=== PATIENT | female | born 1950 | race Caucasian/White ===

== ENCOUNTER 2022-05-09 21:53 | Emergency (ER) | payer OTHER ==
--- OUTSIDE RECORDS SUMMARY | 2022-05-09 21:56 | XMS REPORT | Clinical Summary ---
:1950 Author Organization [facility] Address [address] [place] [address] Care Team Providers Name Role Phone Antonio Hutchins MD Primary Care Provider Evangelist Espinoza MD Unavailable Evangelist Espinoza MD Unavailable Antonio Hutchins MD Unavailable Allergies No known active allergies Medications Medication Sig Dispensed Refills Start Date End Date Status amLODIPine (NORVASC) 5 Take 5 mg by 0 Active mg tablet mouth daily. pravastatin (PRAVACHOL) Take 20 mg by 0 Active 20 mg tablet mouth at bedtime. metoprolol succinate Take 50 mg by 0 Active (TOPROL XL) 50 mg 24 hr mouth daily. tablet Active Problems Problem Noted Date Multinodular goiter 09/01/2015 Social History Tobacco Use Types Packs/Day Years Used Date Smoking Tobacco: Never Assessed Sex Assigned at Date Recorded Not on file Last Filed Vital Signs Not on file Plan of Treatment Health Maintenance Due Date Last Done Comments COVID-19 Vaccination (#1) 02/08/1951 Results Not on fileafter 05/09/2021 Insurance Payer Benefit Plan Subscriber ID Effective Phone Address Typ e / Group Dates MEDICARE MEDICARE [id number] 2015-Pres [phone] NOVITAS Medic are PART A AND B ent [id number] [employer] [place] [address] AETNA AETNA HMO [id number] 2000-Pres [address] HMO MANAGED CARE ent [id number] JAQUELINE FERGUSON [id number] 2017-Pres [address] Govern mental ent [id number] [place] [address] Carmelina Angel Personal/Family Self 1950 [address]) [place] [id number] Carmelina Angel Personal/Family Self 1950 [address] [place] [id number] 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
[2022-05-09 23:24] LABS: Absolute Lymphocytes (CBC) 1.5 K/uL (0.7-4.9); Hematocrit 38.3 % (36.0-45.0); Lymphocytes % 22.8 % (15.3-44.8); MCV 89.9 fL (80-100); MPV 8.5 fL (7.6-11.3); RBC Red Blood Cell Count 4.26 M/uL (3.86-4.86)
[2022-05-09 23:32] LABS: Protime INR 0.99
[2022-05-09 23:42] LABS: Albumin 4.3 g/dL (3.4-5.0); Potassium 3.5 mmol/L (3.5-5.1)
[2022-05-09 23:47] LABS: SARS-CoV-2 Antigen Rapid Res Negative (Negative)
--- NOTE | 2022-05-10 01:46 | ER ---
Nurse's Notes [facility] Name: Carmelina Gilbert Age: 71 yrs Sex: Female : 1950 Arrival Date: 05/09/2022 Time: 21:56 Bed 3 Private MD: Diagnosis: Left sided colitis with rectal bleeding Presentation: 05/09 22:05 Chief complaint: Patient states: "I have been bloody stools since Friday, but I am tw5 really nervous.". Ebola Screen: Patient negative for fever greater than or equal to 101.5 degrees Fahrenheit, and additional compatible Ebola Virus Disease symptoms Patient denies exposure to infectious person. Patient denies travel to an Ebola-affected area in the 21 days before illness onset. Initial Sepsis Screen: Does the patient meet any 2 criteria? No. Patient's initial sepsis screen is negative. Does the patient have a suspected source of infection? No. Patient's initial sepsis screen is negative. Risk Assessment: Do you want to hurt yourself or someone else? Patient reports no desire to harm self or others. Onset of symptoms was May 07, 2021. 22:05 Method Of Arrival: Ambulatory tw5 22:05 Acuity: RACHELLE 3 tw5 22:08 Coronavirus screen: Vaccine status: Patient reports receiving the 2nd dose of the covid tw5 vaccine. Munir. Triage Assessment: 22:05 General: Appears in no apparent distress. Behavior is appropriate for age, anxious. tw5 Pain: Pain currently is 3 out of 10 on a pain scale. Historical: - Allergies: 22:09 No Known Allergies; tw5 - Home Meds: 22:09 metoprolol tartrate 25 mg Oral tab 1 tab once daily [Active]; Norvasc 2.5 mg Oral tab 1 tw5 tab once daily [Active]; prastatin [Active]; - PMHx: 22:09 polio; tw5 - PSHx: 22:09 Cholecystectomy; back surgery; tw5 - Immunization history:: Flu vaccine is not up to date. - Social history:: Smoking status: Patient denies any tobacco usage or history of. - Family history:: not pertinent. - Hospitalizations: : No recent hospitalization is reported. Screenin:10 [facility] ED Fall Risk Assessment (Adult) History of falling in the last 3 months, tw5 including since admission. Abuse screen: Denies threats or abuse. Denies injuries from another. Nutritional screening: No deficits noted. Tuberculosis screening: No symptoms or risk factors identified. Assessment: 22:50 General: Appears in no apparent distress. Behavior is calm, cooperative. Pain: as6 Complains of pain in abdomen. GI: Reports lower abdominal pain, upper abdominal pain, bloody stool. 05/10 01:12 Reassessment: Patient appears in no apparent distress at this time. Patient and/or as6 family updated on plan of care and expected duration. Pain level reassessed. Patient is alert, oriented x 3, equal unlabored respirations, skin warm/dry/pink. Vital Signs: 05/09 22:05 BP 158 / 98; Pulse 74; Resp 18; Temp 98.6; Pulse Ox 98% on R/A; Weight 58.97 kg; Height tw5 5 ft. 5 in. (165.10 cm); Pain 3/10; 23:00 BP 139 / 89; Pulse 79; Resp 18 S; Pulse Ox 100% on R/A; as6 05/10 00:00 BP 128 / 80; Pulse 83; Resp 16 S; Pulse Ox 98% on R/A; as6 01:11 BP 117 / 85; Pulse 83; Resp 17 S; Pulse Ox 96% on R/A; as6 05/09 22:05 Body Mass Index 21.63 (58.97 kg, 165.10 cm) tw5 ED Course: 05/09 21:56 Patient arrived in ED. jj6 22:00 Murali Elizalde MD is Attending Physician. rn 22:05 Arm band placed on. tw5 22:07 Triage completed. tw5 22:34 Shorty Renteria, CHELSY is Primary Nurse. as6 23:55 Inserted saline lock: 20 gauge in right antecubital area, using aseptic technique. as6 Blood collected. 23:56 Placed in gown. Bed in low position. Call light in reach. Side rails up X 1. as6 05/10 00:13 CT Abd/Pelvis - IV Contrast Only In Process Unspecified. EDMS 01:45 Ranjith Mijares MD is Referral Physician. rn 02:06 No provider procedures requiring assistance completed. IV discontinued, intact, kd3 bleeding controlled, No redness/swelling at site. Pressure dressing applied. Administered Medications: 01:57 Drug: Zofran (Ondansetron) 4 mg Route: IVP; Site: right antecubital; kd3 02:06 Follow up: Response: No adverse reaction; Nausea is decreased kd3 Medication: 02:06 VIS not applicable for this client. kd3 Outcome: 01:45 Discharge ordered by . rn 02:06 Discharged to home ambulatory. kd3 02:06 Condition: stable 02:06 Discharge instructions given to patient, family, Instructed on discharge instructions, follow up and referral plans. medication usage, Demonstrated understanding of instructions, follow-up care, medications, Prescriptions given X 2. 02:07 Patient left the ED. kd3 Signatures: Dispatcher [employer] EDMS Murali Elizalde MD MD rn Wood, Tiffany tw5 Danika Weber6 Shorty Renteria RN RN as6 Mago Sainz RN RN kd3
--- NOTE | 2022-05-10 01:46 | EDPHYS ---
Physician Documentation [facility] Name: Carmelina Gilbert Age: 71 yrs Sex: Female : 1950 Arrival Date: 05/09/2022 Time: 21:56 Bed 3 Private MD: ED Physician Murali Elizalde HPI: 05/09 22:25 This 71 yrs old Female presents to ER via Ambulatory with complaints of Rectal Bleeding.rn 22:25 The patient presents to the emergency department with bleeding from the rectum/anus, rn that is mild. Onset: The symptoms/episode began/occurred 2 day(s) ago. Modifying factors: The symptoms are alleviated by nothing, The symptoms are aggravated by bowel movement. Associate signs and symptoms: Pertinent positives: lower GI bleeding, Pertinent negatives: constipation, fever. The patient has not experienced similar symptoms in the past. The patient has not recently seen a physician. Reports just had colonoscopy a few days ago with Dr. Mijares, had polyps removed, and has been bleeding since then, no blood thinners, no sob/lightheaded/chest pain. No syncope. Told by Dr. Mijares that needs another colonoscopy, told to come to ER for blood tests. . Historical: - Allergies: 22:09 No Known Allergies; tw5 - Home Meds: 22:09 metoprolol tartrate 25 mg Oral tab 1 tab once daily [Active]; Norvasc 2.5 mg Oral tab 1 tw5 tab once daily [Active]; prastatin [Active]; - PMHx: 22:09 polio; tw5 - PSHx: 22:09 Cholecystectomy; back surgery; tw5 - Immunization history:: Flu vaccine is not up to date. - Social history:: Smoking status: Patient denies any tobacco usage or history of. - Family history:: not pertinent. - Hospitalizations: : No recent hospitalization is reported. ROS: 22:25 Constitutional: Negative for fever, chills, and weight loss, Eyes: Negative for injury, rn pain, redness, and discharge, Neck: Negative for injury, pain, and swelling, Cardiovascular: Negative for chest pain, palpitations, and edema, Respiratory: Negative for shortness of breath, cough, wheezing, and pleuritic chest pain, Abdomen/GI: + lower GI bleeding Back: Negative for injury and pain, MS/Extremity: Negative for injury and deformity, Skin: Negative for injury, rash, and discoloration, Neuro: Negative for headache, weakness, numbness, tingling, and seizure. Exam: 22:25 Constitutional: This is a well developed, well nourished patient who is awake, alert, rn and in no acute distress. Head/Face: Normocephalic, atraumatic. Eyes: Pupils equal round and reactive to light, extra-ocular motions intact. Cardiovascular: Regular rate and rhythm. No pulse deficits. Respiratory: No increased work of breathing, no retractions or nasal flaring. Abdomen/GI: soft, non-tender Skin: Warm, dry MS/ Extremity: Pulses equal, no cyanosis. Neuro: Awake and alert, GCS 15 Vital Signs: 22:05 BP 158 / 98; Pulse 74; Resp 18; Temp 98.6; Pulse Ox 98% on R/A; Weight 58.97 kg; Height tw5 5 ft. 5 in. (165.10 cm); Pain 3/10; 23:00 BP 139 / 89; Pulse 79; Resp 18 S; Pulse Ox 100% on R/A; as6 05/10 00:00 BP 128 / 80; Pulse 83; Resp 16 S; Pulse Ox 98% on R/A; as6 01:11 BP 117 / 85; Pulse 83; Resp 17 S; Pulse Ox 96% on R/A; as6 05/09 22:05 Body Mass Index 21.63 (58.97 kg, 165.10 cm) tw5 MDM: 05/09 22:00 Patient medically screened. rn 05/10 01:43 Differential diagnosis: bleeding from polyp removal, diverticulosis, colitis. Data rn reviewed: vital signs, nurses notes, lab test result(s), radiologic studies, CT scan, and as a result, I will discharge patient. Consideration of Admission/Observation Escalation of care including admission/observation considered. I considered the following discharge prescriptions or medication management in the emergency department Medications were administered in the Emergency Department. See MAR. Counseling: I had a detailed discussion with the patient and/or guardian regarding: the historical points, exam findings, and any diagnostic results supporting the discharge/admit diagnosis, lab results, radiology results, the need for outpatient follow up, to return to the emergency department if symptoms worsen or persist or if there are any questions or concerns that arise at home. Special discussion: I discussed with the patient/guardian in detail that at this point there is no indication for admission to the hospital. It is understood, however, that if the symptoms persist or worsen the patient needs to return immediately for re-evaluation. Based on the history and exam findings, there is no indication for further emergent testing or inpatient evaluation. I discussed with the patient/guardian the need to see the chief juvenile probation officer for further evaluation of the symptoms. ED course: Pt with normal H/H, stable vitals, no acute findings on CT abdomen. Discussed options of admission vs f/u with patient, she states already has colonoscopy setup for today with Dr. Mijares, has done half of prep already, told her f/u with outpt colonoscopy today definitely an option. Return precautions given and understood. . 05/09 22:11 Order name: CBC with Diff; Complete Time: 23: rn 05/09 22:11 Order name: CMP; Complete Time: 05/09 22:11 Order name: Protime (+inr); Complete Time: rn 05/09 22:11 Order name: Ptt, Activated; Complete Time: rn 05/09 22:11 Order name: Type And Screen; Complete Time: rn 05/09 22:11 Order name: SARS-COV-2 Antigen Rapid; Complete Time: rn 05/09 22:11 Order name: CT Abd/Pelvis - IV Contrast Only rn 05/09 22:11 Order name: IV Saline Lock; Complete Time: 23:16 rn 05/09 22:11 Order name: Labs collected and sent; Complete Time: 23:16 rn Administered Medications: 01:57 Drug: Zofran (Ondansetron) 4 mg Route: IVP; Site: right antecubital; kd3 02:06 Follow up: Response: No adverse reaction; Nausea is decreased kd3 Disposition Summary: 05/10/22 01:45 Discharge Ordered Location: Home rn Problem: new rn Symptoms: have improved rn Condition: Stable rn Diagnosis - Left sided colitis with rectal bleeding rn Followup: rn - With: Ranjith Mijares MD - When: As needed - Reason: Recheck today's complaints, Re-evaluation by your physician Discharge Instructions: - Discharge Summary Sheet rn - Rectal Bleeding rn - Colonoscopy, Adult, Care After rn - Colitis rn Forms: - Medication Reconciliation Form rn - Thank You Letter rn - Antibiotic assistant county attorney - Prescription Opioid Use rn Prescriptions: - Flagyl 500 mg Oral Tablet - take 1 tablet by ORAL route every 12 hours for 7 days; 14 tablet; Refills: 0, rn Product Selection Permitted - Cipro 500 mg Oral Tablet - take 1 tablet by ORAL route every 12 hours for 7 days; 14 tablet; Refills: 0, rn Product Selection Permitted Signatures: Dispatcher [employer] Murali Howard MD MD rn Wood, Tiffany tw5 Mago Sainz RN RN kd3
[2022-05-10] MEDS ORDERED: ONDANSETRON 4 MG/2 ML VIAL ONE (01:52)
[2022-05-10 03:01] VITALS: TEMP 98.6
[2022-05-10 03:04] VITALS: BP 117/85; O2SAT 96
--- NOTE | 2022-05-10 21:22 | RAD REPORT ---
EXAM DESCRIPTION: CT - Abdomen Pelvis W Contrast - 05/10/2022 6:52 am CLINICAL HISTORY: 71 years Female rectal bleeding, recent colnoscopy COMPARISON: None TECHNIQUE: Images were obtained in axial, sagittal, and coronal planes. Intravenous contrast was adm inistered. Arterial and venous phase imaging was performed. This exam was performed according to our departmental dose-optimization program which includes use of Automated Exposure Control, adjustment of the mA and/or kV according to patient size and/or use of i terative reconstruction technique. FINDINGS: No abnormality involving the liver, spleen, pancreas, or adrenal glands bilaterally. No obstructing renal or ureteral calculi bilaterally. No hydronephrosis bilaterally. Right renal cyst s. Appendix within normal limits. No bowel obstruction, or perforation. Mildly distended fluid-filled la rge bowel. No extravasation of contrast during the study. No CT evidence for active bleeding. Moderat e diverticulosis distal left colon with associated mucosal thickening distal left colon. No abnormality lower lungs bilaterally. No acute osseous abnormality. Sclerotic changes inferior L3 vertebral body. Calcification anterior lo ngitudinal ligament with straightened appearance vertebral bodies thoracolumbar spine. No abnormality of abdominal aorta or portal vein. No adenopathy or abnormal fluid collections seen. IMPRESSION: No bowel obstruction or perforation. No evidence for active bleeding throughout the stud y. Suspected colitis. No focal diverticulitis. Possible ankylosing spondylitis. Electronically signed by: Radha Caruso MD 05/10/2022 12:48 AM ADMISSIONS CONSULTANT Due to temporary technical issues with the PACS/Fluency reporting system, reports are being signed by the in house radiologists without review as a courtesy to insure prompt reporting. The interpreting radiologist is fully responsible for the content of the report.
== END 2022-05-10 02:07 | disposition home or self-care (01) ==
LOC: ER 21:53
DX: K51.511 Left sided colitis with rectal bleeding (principal); Z98.890 Other specified postprocedural states; Z20.822 Contact with and (suspected) exposure to COVID-19
CPT/HCPCS: 85025; 36415; 86900; 86850; 85610; 86901; 85730; 80053; 74177; 96374; 99284; 87811; Q9967; J2405

== ENCOUNTER 2022-05-15 02:40 | Emergency (ER) | payer OTHER ==
--- OUTSIDE RECORDS SUMMARY | 2022-05-15 02:42 | XMS REPORT | Clinical Summary ---
:1950 Author Organization [facility] Address [address] [place] [address] Care Team Providers Name Role Phone Antonio [...] Vaccination (#1) 02/08/1951 Results Not on fileafter 05/15/2021 Insurance Payer Benefit Plan Subscriber ID Effective Phone Address Typ e / Group Dates MEDICARE MEDICARE [id number] 2015-Pres [phone] NOVITAS Medic are PART A AND B ent [id number] [place] [address] AETNA AETNA HMO [id number] 2000-Pres [address] HMO MANAGED CARE ent [id number] JAQUELINE FERG[place]ON [id number] 2017-Pres [address] Govern mental ent [id number] [place] [address] Carmelina Angel Personal/Family Self 1950 [address]) [place] [id number] Carmelina Angel Personal/Family Self 1950 [address]) [place] [id number] 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
[2022-05-15] MEDS ORDERED: ONDANSETRON 4 MG/2 ML VIAL ONE (03:13)
[2022-05-15] MEDS ORDERED: NA CHLORIDE 0.9% 1,000 ML ONE (03:13)
[2022-05-15] MEDS ORDERED: MORPHINE 4 MG/ML SYR ONE (03:13)
[2022-05-15 03:39] LABS: Absolute Lymphocytes (CBC) 1.4 K/uL (0.7-4.9); MCV 89.7 fL (80-100); MPV 8.7 fL (7.6-11.3); RBC Red Blood Cell Count 4.02 M/uL (3.86-4.86)
[2022-05-15 04:06] LABS: Albumin 4.3 g/dL (3.4-5.0); Bilirubin Total 0.9 mg/dL (0.2-1.0); Potassium 3.1 mmol/L (3.5-5.1); Protein, Total 7.8 g/dL (6.4-8.2)
[2022-05-15 05:02] LABS: Urine Blood Negative (Negative); Urine Glucose Negative (Negative); Urine Protein Negative (Negative); Urine Specific Gravity >=1.030 (1.005-1.030); Urine pH 5.5 (5.0-7.0)
--- NOTE | 2022-05-15 06:00 | EDPHYS ---
Physician Documentation [facility] Name: Carmelina Gilbert Age: 71 yrs Sex: Female : 1950 Arrival Date: 05/15/2022 Time: 02:45 Bed 8 Private MD: ED Physician Kwame Segura HPI: 05/15 03:09 This 71 yrs old Female presents to ER via Unassigned with complaints of Abdominal Pain. rt 03:09 Patient presents to the ED with abdominal pain. The patient had a colonoscopy recently rt when polyps were snared, was sent to the ER for rectal bleeding, was diagnosed with colitis, prescribed Cipro and Flagyl, subsequently discharged to follow-up same day for repeat colonoscopy in which clips were placed that stopped the bleeding. The patient states that she no longer has bloody stools after the clip procedure. States that her abdominal pain worsened during that time subsequently. Pain is generalized, aching nature, nonradiating. She has no nausea or vomiting. Denies other acute complaints at this time, symptoms are moderate in severity, no other aggravating or alleviating factors. Historical: - PMHx: 03:14 Polio; kd3 - PSHx: 03:14 back surgery; Cholecystectomy; kd3 - Immunization history:: Adult Immunizations up to date. - Social history:: Smoking status: Patient denies any tobacco usage or history of. - Family history:: not pertinent. ROS: 03:09 Constitutional: Negative for fever, chills, and weight loss, Cardiovascular: Negative rt for chest pain, palpitations, and edema, Respiratory: Negative for shortness of breath, cough, wheezing, and pleuritic chest pain, Skin: Negative for injury, rash, and discoloration, Neuro: Negative for headache, weakness, numbness, tingling, and seizure, Psych: Negative for depression, anxiety, suicide ideation, homicidal ideation, and hallucinations. 03:09 Abdomen/GI: Positive for abdominal pain, Negative for nausea, vomiting. Exam: 03:09 Constitutional: This is a well developed, well nourished patient who is awake, alert, rt and in no acute distress. Head/Face: Normocephalic, atraumatic. Chest/axilla: Normal chest wall appearance and motion. Nontender with no deformity. No lesions are appreciated. Cardiovascular: Regular rate and rhythm with a normal S1 and S2. No gallops, murmurs, or rubs. Normal PMI, no JVD. No pulse deficits. Respiratory: Lungs have equal breath sounds bilaterally, clear to auscultation and percussion. No rales, rhonchi or wheezes noted. No increased work of breathing, no retractions or nasal flaring. Skin: Warm, dry with normal turgor. Normal color with no rashes, no lesions, and no evidence of cellulitis. MS/ Extremity: Pulses equal, no cyanosis. Neurovascular intact. Full, normal range of motion. Neuro: Awake and alert, GCS 15, oriented to person, place, time, and situation. Cranial nerves II-XII grossly intact. Motor strength 5/5 in all extremities. Sensory grossly intact. Cerebellar exam normal. Normal gait. Psych: Awake, alert, with orientation to person, place and time. Behavior, mood, and affect are within normal limits. 03:09 Abdomen/GI: Mild tenderness diffusely without rebound, guarding, distention. Vital Signs: 03:00 BP 147 / 86; Pulse 70; Resp 18 S; Pulse Ox 100% on R/A; ha1 03:08 BP 147 / 86; Pulse 72; Resp 19; Temp 98.4(O); Pulse Ox 100% on R/A; Weight 58.97 kg; kd3 Height 5 ft. 5 in. (165.10 cm); 04:00 BP 147 / 84; Pulse 68; Resp 17 S; Pulse Ox 99% ; ha1 04:10 Pulse 69; Resp 18 S; Pulse Ox 99% on R/A; ha1 05:00 BP 158 / 85; Pulse 67; Resp 17 S; Pulse Ox 99% on R/A; ha1 06:00 BP 160 / 80; Pulse 70; Resp 18 S; Pulse Ox 99% on R/A; ha1 03:08 Body Mass Index 21.63 (58.97 kg, 165.10 cm) kd3 MDM: 02:55 Patient medically screened. rt 06:03 Differential diagnosis: Diverticulitis, colitis, bowel obstruction, UTI. Data reviewed: rt vital signs, nurses notes, old medical records, lab test result(s), radiologic studies. Consideration of Admission/Observation Escalation of care including admission/observation considered. Independent interpretation of the following test(s) in the Emergency Department CT Scan: My interpretation is No bowel obstruction my interpretation of the CT images. Counseling: I had a detailed discussion with the patient and/or guardian regarding: the historical points, exam findings, and any diagnostic results supporting the discharge/admit diagnosis, lab results, radiology results, the need for outpatient follow up, Had long discussion with patient regarding improving CT findings, benign labs. We will start patient on Protonix, Bentyl. Patient has no indications for admission to the hospital at this time, instructed follow-up with GI and PCP, to return to the emergency department if symptoms worsen or persist or if there are any questions or concerns that arise at home. 05/15 03:05 Order name: CBC with Diff; Complete Time: 04:07 rt 05/15 03:05 Order name: CMP; Complete Time: 04:07 rt 05/15 03:05 Order name: Lipase; Complete Time: 04:07 rt 05/15 03:05 Order name: CT Abd/Pelvis - IV Contrast Only rt 05/15 03:05 Order name: Urine Dipstick-Ancillary (obtain specimen); Complete Time: 05:17 rt 05/15 05:03 Order name: Urine Dipstick-Ancillary; Complete Time: 05:05 EDMS Administered Medications: 03:44 Drug: NS 0.9% 1000 ml Route: IV; Rate: 1 bolus; Site: left antecubital; ha1 03:45 Drug: Zofran (Ondansetron) 4 mg Route: IVP; Site: left antecubital; ha1 04:10 Follow up: Response: No adverse reaction ha1 03:48 Drug: morphine 4 mg Route: IVP; Infused Over: 4 mins; Site: left antecubital; ha1 04:10 Follow up: Response: No adverse reaction; Pain is decreased; RASS: Alert and Calm (0) ha1 06:35 Drug: Bentyl (dicyclomine) 20 mg Route: IM; Site: right ventrogluteal; ha1 06:55 Follow up: Response: No adverse reaction ha1 06:35 Drug: ProTONIX (pantoprazole) 40 mg Route: IVP; Site: left antecubital; ha1 06:55 Follow up: Response: No adverse reaction ha1 Disposition Summary: 05/15/22 05:59 Discharge Ordered Location: Home rt Problem: an ongoing problem rt Symptoms: are unchanged rt Condition: Stable rt Diagnosis - Abdominal pain, unspecified rt Followup: rt - With: Ranjith Mijares MD - When: 2 - 3 days - Reason: Discharge Instructions: - Discharge Summary Sheet rt - Abdominal Pain, Adult rt Forms: - Medication Reconciliation Form rt - Thank You Letter rt - Antibiotic Education rt - Prescription Opioid Use rt Prescriptions: - Protonix 40 mg Oral tablet,delayed release (DR/EC) - take 1 tablet by ORAL route once daily; 14 tablet; Refills: 0, Product rt Selection Permitted - dicyclomine 10 mg Oral Capsule - take 1 capsule by ORAL route 3 times per day; 21 capsule; Refills: 0, Product rt Selection Permitted Signatures: Dispatcher [employer] Mago Diaz RN RN kd3 Marita Calvert RN RN ha1 Kwame Segura MD MD rt
--- NOTE | 2022-05-15 06:00 | ER ---
Nurse's Notes [facility] Name: Carmelina Gilbert Age: 71 yrs Sex: Female : 1950 Arrival Date: 05/15/2022 Time: 02:45 Bed 8 Private MD: Diagnosis: Abdominal pain, unspecified Presentation: 05/15 03:08 Chief complaint: Patient states: I have had a couple of colonoscopy's done recently by kd3 Dr. rich and i have had some polyps removed and some clips done but i am having some pain now in my lower abdomen. it kind of haywood a bit. It does not hurt when i use the bathroom and i have had no more bloody stool since i have had the colonoscopy. Coronavirus screen: Vaccine status: Patient reports receiving the 2nd dose of the covid vaccine. Ebola Screen: No symptoms or risks identified at this time. Initial Sepsis Screen: Does the patient meet any 2 criteria? No. Patient's initial sepsis screen is negative. Does the patient have a suspected source of infection? No. Patient's initial sepsis screen is negative. Risk Assessment: Do you want to hurt yourself or someone else? Patient reports no desire to harm self or others. Onset of symptoms was May 15, 2022. 03:08 Method Of Arrival: Ambulatory kd3 03:08 Acuity: RACHELLE 3 kd3 Triage Assessment: 03:14 General: Appears in no apparent distress. Behavior is calm, cooperative. Pain: kd3 Complains of pain in right lower quadrant and left lower quadrant. GI: Abdomen is non-distended. Historical: - PMHx: 03:14 Polio; kd3 - PSHx: 03:14 back surgery; Cholecystectomy; kd3 - Immunization history:: Adult Immunizations up to date. - Social history:: Smoking status: Patient denies any tobacco usage or history of. - Family history:: not pertinent. Screenin:55 [facility] ED Fall Risk Assessment (Adult) History of falling in the last 3 months, ha1 including since admission No falls in past 3 months (0 pts) Confusion or Disorientation No (0 pts) Intoxicated or Sedated No (0 pts) Impaired Gait No (0 pts) Mobility Assist Device Used No (0 pt) Altered Elimination No (0 pt) Score/Fall Risk Level 0 - 2 = Low Risk Oriented to surroundings, Maintained a safe environment, Educated pt \T\ family on fall prevention, incl call for assistance when getting out of bed, Assessed \T\ reinforced patient's understanding of fall precautions. 03:31 Abuse screen: Denies threats or abuse. Denies injuries from another. Nutritional ha1 screening: No deficits noted. Tuberculosis screening: No symptoms or risk factors identified. Assessment: 02:54 General: Appears comfortable, Behavior is calm, cooperative. Pain: Complains of pain in ha1 left lower quadrant and right lower quadrant Pain does not radiate. Pain currently is 8 out of 10 on a pain scale. Quality of pain is described as throbbing, Pain began suddenly, Alleviated by medications. Neuro: Level of Consciousness is awake, alert, obeys commands, Oriented to person, place, time, situation. Cardiovascular: Patient's skin is warm and dry. Respiratory: Airway is patent Respiratory effort is even, unlabored, Respiratory pattern is regular, symmetrical. GI: Abdomen is flat, Bowel sounds present X 4 quads. Abd is soft and non tender X 4 quads. GI: Reports lower abdominal pain. : No signs and/or symptoms were reported regarding the genitourinary system. EENT: No deficits noted. No signs and/or symptoms were reported regarding the EENT system. Derm: Skin is pink, warm \T\ dry. Musculoskeletal: Circulation, motion, and sensation intact. Range of motion: intact in all extremities. 04:00 Reassessment: Patient and/or family updated on plan of care and expected duration. Pain ha1 level reassessed. Patient is alert, oriented x 3, equal unlabored respirations, skin warm/dry/pink. 05:00 Reassessment: Patient and/or family updated on plan of care and expected duration. Pain ha1 level reassessed. Patient is alert, oriented x 3, equal unlabored respirations, skin warm/dry/pink. Patient states feeling better. Patient states symptoms have improved. Vital Signs: 03:00 BP 147 / 86; Pulse 70; Resp 18 S; Pulse Ox 100% on R/A; ha1 03:08 BP 147 / 86; Pulse 72; Resp 19; Temp 98.4(O); Pulse Ox 100% on R/A; Weight 58.97 kg; kd3 Height 5 ft. 5 in. (165.10 cm); 04:00 BP 147 / 84; Pulse 68; Resp 17 S; Pulse Ox 99% ; ha1 04:10 Pulse 69; Resp 18 S; Pulse Ox 99% on R/A; ha1 05:00 BP 158 / 85; Pulse 67; Resp 17 S; Pulse Ox 99% on R/A; ha1 06:00 BP 160 / 80; Pulse 70; Resp 18 S; Pulse Ox 99% on R/A; ha1 03:08 Body Mass Index 21.63 (58.97 kg, 165.10 cm) kd3 ED Course: 02:45 Patient arrived in ED. ja2 02:54 Patient has correct armband on for positive identification. Placed in gown. Bed in low ha1 position. Call light in reach. Side rails up X 1. 02:55 Kwame Segura MD is Attending Physician. rt 03:06 Shorty Renteria, CHELSY is Primary Nurse. as6 03:14 Triage completed. kd3 03:14 Arm band placed on right wrist. EKG completed in triage. Results shown to MD. kd3 03:15 Inserted saline lock: 20 gauge in left antecubital area, using aseptic technique. Blood ha1 collected. 03:27 Lipase Sent. ha1 03:28 CMP Sent. ha1 03:28 CBC with Diff Sent. ha1 05:59 Ranjith Mijares MD is Referral Physician. rt 06:55 No provider procedures requiring assistance completed. IV discontinued, intact, ha1 bleeding controlled, No redness/swelling at site. Pressure dressing applied. 08:55 CT Abd/Pelvis - IV Contrast Only In Process Unspecified. EDMS Administered Medications: 03:44 Drug: NS 0.9% 1000 ml Route: IV; Rate: 1 bolus; Site: left antecubital; ha1 03:45 Drug: Zofran (Ondansetron) 4 mg Route: IVP; Site: left antecubital; ha1 04:10 Follow up: Response: No adverse reaction ha1 03:48 Drug: morphine 4 mg Route: IVP; Infused Over: 4 mins; Site: left antecubital; ha1 04:10 Follow up: Response: No adverse reaction; Pain is decreased; RASS: Alert and Calm (0) ha1 06:35 Drug: Bentyl (dicyclomine) 20 mg Route: IM; Site: right ventrogluteal; ha1 06:55 Follow up: Response: No adverse reaction ha1 06:35 Drug: ProTONIX (pantoprazole) 40 mg Route: IVP; Site: left antecubital; ha1 06:55 Follow up: Response: No adverse reaction ha1 Medication: 06:55 VIS not applicable for this client. ha1 Outcome: 05:59 Discharge ordered by . rt 06:55 Patient left the ED. ha1 06:55 Discharged to home ambulatory. ha1 06:55 Condition: stable 06:55 Discharge instructions given to patient, Instructed on discharge instructions, follow up and referral plans. medication usage, Demonstrated understanding of instructions, follow-up care, medications, Prescriptions given X 2. Signatures: Dispatcher [employer] EDMS Niya Millan2 Shorty Renteria RN RN as6 Mago Sainz RN RN kd3 Marita Calvert RN RN ha1 Kwame Segura MD MD rt
[2022-05-15] MEDS ORDERED: PANTOPRAZOLE 40 MG INJ ONE (06:43)
[2022-05-15] MEDS ORDERED: DICYCLOMINE HCL 20 MG/2 ML AMP IM ONE (06:44)
[2022-05-15 07:48] VITALS: O2SAT 99
[2022-05-15 07:50] VITALS: BP 158/85
--- NOTE | 2022-05-15 12:15 | RAD REPORT ---
EXAM DESCRIPTION: CT - Abdomen Pelvis W Contrast - 05/15/2022 6:52 am CLINICAL HISTORY: 71 years Female with abdominal pain TECHNIQUE: Axial CT imaging of the abdomen and pelvis was performed following the administration of intravenous contrast.. Oral contrast was not administered. Sagittal and coronal reconstructed image s were then performed. The CT study is performed according to ALARA (as low as reasonably achievabl e) or ALARA/IMAGE GENTLY, with automatic adjustment of mA and/or kV according to patient size. Performed on: 05/15/2022 at 4:36 AM. COMPARISON: CT abdomen and pelvis with IV contrast performed on 05/10/2022 FINDINGS: Lung bases: The lung bases are clear. There is minimal bibasilar atelectasis and/or fibros is. The heart is mildly enlarged. Liver: The liver is normal in size and configuration. No focal hepatic abnormalities are identified. Liver attenuation is within normal limits. The hepatic and portal veins are patent. Spleen: The spleen is normal in size, configuration and attenuation. Gallbladder and bile duct: The gallbladder is surgically absent. There is mild dilatation of the in trahepatic and extrahepatic bile ducts likely physiologic in nature following cholecystectomy. No def inite choledocholithiasis is identified. Pancreas: The pancreas is grossly normal in size and configuration. Adrenal Glands: The adrenal glands are normal in size and configuration. Kidneys: The kidneys are normal in size and configuration. There is no evidence of hydronephrosis. Th ere is no evidence of nephrolithiasis. There is a small right renal cortical cyst. No follow-up imagi ng is recommended. Stomach: The stomach is grossly normal. There may be a small sliding-type hiatal hernia. Bowel: The bowel gas pattern is non specific and non obstructive. There is occasional colonic diverti culosis. There is a linear radiopaque metallic foreign object in the ascending colon (series 202, raley ge 31) in the region of the splenic flexure (series 201, image 35) and in the cecum (series 202, imag e 34). The etiology of these is uncertain. There are multiple fluid-filled colonic bowel loops and th ere are distended fluid-filled small bowel loops in the left upper quadrant. These findings are nonsp ecific but could be related to underlying gastroenteritis. Appendix: The appendix is not clearly identified. There is no CT evidence to suggest acute appendicit is. Free air: There is no evidence of free air. Free fluid: There is no evidence of free fluid. Vasculature: The aorta is normal in caliber and contour. The inferior vena cava is grossly unremarkab le. There are mild atherosclerotic calcifications along the abdominal aorta. Lymphadenopathy: No pathologic lymphadenopathy is identified. Bladder: The bladder is partially distended and smooth in contour. Reproductive: The uterus is grossly within normal limits. There is a small 1.8 cm right adnexal cyst similar to the prior study. No follow-up imaging is recommended. Bones: No acute osseous abnormalities are identified. The appearance of the visualized thoracic spine suggests ankylosing spondylitis. There are degenerative changes of the lumbar spine. Soft tissues: No acute soft tissue abnormalities are identified. IMPRESSION: 1. There are multiple fluid-filled colonic bowel loops and there are distended fluid-f illed small bowel loops in the left upper quadrant. These findings are nonspecific but could be relat ed to underlying gastroenteritis. 2. Colonic diverticulosis. 3. Status post cholecystectomy with mild intrahepatic and extrahepatic biliary ductal dilatation li rosalia physiologic in nature following cholecystectomy. No definite choledocholithiasis is identified. 4. Linear radiopaque metallic foreign objects in the ascending colon, in the region of the splenic flexure and in the cecum. The etiology of these is uncertain. Correlate clinically. 5. Suspect ankylosing spondylitis. Electronically signed by: Callie Lundberg DO 05/15/2022 5:11 AM [facility] Due to temporary technical issues with the PACS/Fluency reporting system, reports are being signed by the in house radiologists without review as a courtesy to insure prompt reporting. The interpreting radiologist is fully responsible for the content of the report.
== END 2022-05-15 06:55 | disposition home or self-care (01) ==
LOC: ER 02:40
DX: R10.84 Generalized abdominal pain (principal); Z98.890 Other specified postprocedural states
CPT/HCPCS: 85025; 36415; 81003; 83690; 80053; 74177; Q9967; J0500; C9113; J7030; J2405

== ENCOUNTER → 2023-04-13 | Emergency (ER) | payer OTHER ==
[~2023-04-13] MED LIST: HYDROCODONE/APAP 7.5/325 MG TAB ONE; MORPHINE 4 MG/ML SYR ONE; NA CHLORIDE 0.9% 1,000 ML ONE; ONDANSETRON 4 MG/2 ML VIAL ONE
--- OUTSIDE RECORDS SUMMARY | 2023-04-13 08:40 | XMS REPORT | Clinical Summary ---
Author Name Unknown Organization [facility] Address [address] [place] [address] Care Team Providers Care Soloist Dancer Name Role Phone Antonio Hutchins MD Primary Care Provider [phone] Evangelist Espinoza MD Unavailable [phone] Evangelist Espinoza MD Unavailable [phone] Antonio Hutchins MD Unavailable [phone] Allergies No known active allergies Medications Medication Sig Dispensed Refills Start Date End Date Status amLODIPine (NORVASC) 5 mg tablet Take 5 mg by mouth daily. 0 Active pravastatin (PRAVACHOL) 20 mg tablet Take 20 mg by mouth at bedtime. 0 Active metoprolol succinate (TOPROL XL) 50 mg 24 hr tablet Take 50 mg by mouth daily. 0 Active Active Problems Problem Noted Date Diagnosed Date Multinodular goiter 09/01/2015 Social History Tobacco Use Types Packs/Day Years Used Date Smoking Tobacco: Never Assessed Sex and Gender Information Value Date Recorded Sex Assigned at Not on file Gender Identity Not on file Sexual Orientation Not on file Plan of Treatment Health Maintenance Due Date Last Done Comments COVID-19 Vaccination (#1) 02/08/1951 Care Teams Soloist Dancer Relationship Specialty Start Date End Date Antonio Hutchins MD [address] [place] [address] [id number] PCP - General 05/17/15 Evangelist Espinoza MD [address] [place] [phone] PCP - External Referring 08/03/14 Evangelist Espinoza MD [address] [place] [phone] PCP - External Follow Up A 08/03/14 Antonio Hutchins MD [address] [place] [address] [id number] Physician 05/24/15
[2023-04-13 09:44] LABS: Absolute Lymphocytes (CBC) 1.4 K/uL (0.7-4.9); Hematocrit 46.6 % (36.0-45.0); MPV 8.9 fL (7.6-11.3); Platelets 222 thou/uL (152-406); RBC Red Blood Cell Count 5.12 M/uL (3.86-4.86)
[2023-04-13 09:48] LABS: Specific Gravity 1.017 (1.005-1.030); Transitional Epithelial <5 /HPF (None Seen); Urine Bacteria None Seen /HPF (<20); Urine Bilirubin NEGATIVE (Negative); Urine Blood Negative (Negative); Urine Clarity Turbid (Clear); Urine Color Yellow (Yellow); Urine Glucose NEGATIVE (Negative); Urine Mucus Slight /HPF (None Seen); Urine Protein NEGATIVE (Negative); Urine RBC <5 /HPF (None Seen); Urine Urobilinogen 1+ (Normal)
[2023-04-13 11:28] LABS: Albumin 3.6 g/dL (3.4-5.0); Bilirubin Total 1.4 mg/dL (0.2-1.0); Potassium 3.4 mEq/L (3.5-5.1); Protein, Total 6.7 g/dL (6.4-8.2)
--- NOTE | 2023-04-13 12:19 | RAD REPORT ---
EXAM DESCRIPTION: CTAbdomen Pelvis W Contrast - 04/13/2023 11:53 am CLINICAL HISTORY: ABD PAIN COMPARISON: Abdomen Pelvis W Contrast dated 05/15/2022; Abdomen Pelvis W Contrast dated 05/09/2022 TECHNIQUE: CT of the abdomen and pelvis was performed. All CT scans are performed using dose optimization technique as appropriate and may include automated exposure control or mA/KV adjustment according to patient size. FINDINGS: Lower chest: Mild circumferential thickened distal esophagus. Liver: Intra and extrahepatic biliary duct dilatation. No suspicious liver mass. Biliary: Cholecystectomy. Extrahepatic biliary duct dilatation which is chronic and may be related to the postcholecystectomy state. Stomach: No significant focal abnormality. Duodenum: No significant focal abnormality. Pancreas: No significant abnormality. Spleen: No significant abnormality. Adrenal: No suspicious lesions. Kidney/ureter: No hydronephrosis. No renal calculi. Too small to characterize and/or benign appearing renal lesions are noted. Retroperitoneum: No retroperitoneal adenopathy. Vascular: No aneurysm. Atherosclerosis. Bowel: Diverticulosis. No evidence of acute diverticulitis.. Peritoneum: Small volume of pleural free fluid. Bladder: Grossly unremarkable. Reproductive: Hysterectomy. Bones: No acute fracture. Multilevel degenerative changes are present in the spine. Scoliosis. Other: n/a IMPRESSION: No acute intra-abdominal or pelvic finding. Small volume of nonspecific pelvic free flui d. Intra extrahepatic biliary duct dilatation is chronic and presumably due to the postcholecystectom y state. Correlate with LFTs.
--- NOTE | 2023-04-13 12:43 | EDPHYS ---
Physician Documentation [facility] Name: Carmelina Gilbert Age: 72 yrs Sex: Female : 1950 Arrival Date: 04/13/2023 Time: 08:38 Bed 5 Private MD: Erlin Espinoza C ED Physician Kwame Segura HPI: 04/13 09:11 This 72 yrs old Female presents to ER via Ambulatory with complaints of Abdominal Pain. sb4 09:11 The patient presents with abdominal pain in the lower abdomen. Onset: The sb4 symptoms/episode began/occurred 1 week(s) ago, and became worse last night. The symptoms do not radiate. Associated signs and symptoms: none. The symptoms are described as crampy. Modifying factors: The symptoms are alleviated by nothing, the symptoms are aggravated by nothing. The patient has not experienced similar symptoms in the past. The patient has not recently seen a physician. Historical: - Allergies: 09:04 Flagyl; aa5 - PMHx: 09:04 Polio; aa5 09:05 Hypertensive disorder; Hypercholesterolemia; aa5 - PSHx: 09:04 back surgery; Cholecystectomy; aa5 - Immunization history:: Adult Immunizations unknown. - Social history:: Smoking status: Patient denies any tobacco usage or history of. ROS: 09:11 Constitutional: Negative for fever, chills, and weight loss, sb4 09:11 Abdomen/GI: Positive for abdominal pain, 09:11 All other systems are negative, Exam: 09:11 Constitutional: This is a well developed, well nourished patient who is awake, alert, sb4 and in no acute distress. Head/Face: Normocephalic, atraumatic. Eyes: Extra-ocular motions intact. Periorbital areas with no swelling, redness, or edema. ENT: Mucous membranes moist. Cardiovascular: Regular rate and rhythm with a normal S1 and S2. Respiratory: Lungs have equal breath sounds bilaterally, clear to auscultation and percussion. No rales, rhonchi or wheezes noted. No increased work of breathing, no retractions or nasal flaring. Abdomen/GI: Soft, non-tender, no distension. Skin: Warm, dry with normal turgor. Normal color with no rashes, no lesions, and no evidence of cellulitis. MS/ Extremity: Pulses equal, no cyanosis. Neurovascular intact. Full, normal range of motion. Neuro: Awake and alert, GCS 15, oriented to person, place, time, and situation. Motor strength 5/5 in all extremities. Sensory grossly intact. Vital Signs: 08:57 BP 145 / 87; Pulse 78; Resp 16 S; Temp 98.5(O); Pulse Ox 96% on R/A; aa5 11:00 BP 135 / 79; Pulse 75; Resp 15; Pulse Ox 95% ; bp 12:47 BP 145 / 87; Pulse 77; Resp 16 S; Pulse Ox 100% on R/A; as6 MDM: 09:00 Patient medically screened. sb4 09:11 Differential diagnosis: bowel obstruction, diverticulitis, non-specific abd pain, sb4 urinary tract infection. 12:42 Data reviewed: vital signs, nurses notes, lab test result(s), radiologic studies, and sb4 as a result, I will discharge patient. Consideration of Admission/Observation Escalation of care including admission/observation considered. Management of patient was discussed with the following: Primary Care Provider: Dr. Espinoza, recommends outpatient GI follow up. Care significantly affected by the following chronic conditions: Hypertension. Counseling: I had a detailed discussion with the patient and/or guardian regarding the historical points, exam findings, and any diagnostic results supporting the discharge/admit diagnosis, lab results, radiology results, the need for outpatient follow up, a quality assurance inspector, to return to the emergency department if symptoms worsen or persist or if there are any questions or concerns that arise at home. 04/13 09:06 Order name: CBC with Diff; Complete Time: 09:50 04/13 09:06 Order name: CMP; Complete Time: 11:35 04/13 09:06 Order name: Lipase; Complete Time: 11:35 04/13 09:06 Order name: Urinalysis w/ reflexes; Complete Time: 09:50 04/13 09:06 Order name: CT Abd/Pelvis - IV Contrast Only; Complete Time: 12:23 04/13 09:06 Order name: IV Saline Lock; Complete Time: 09:30 04/13 09:06 Order name: Labs collected and sent; Complete Time: 09:30 04/13 09:51 Order name: Labs - recollect needed: recollect green top/ hemolyzed per Rosalva; eb Complete Time: 10:57 Administered Medications: 09:30 Drug: morphine IVP or IV 4 mg IVP once over 4 mins Route: IVP; Infused Over: 4 mins; bp Site: right forearm; 12:48 Follow up: Response: No adverse reaction as6 09:31 Drug: NS 0.9% IV 1000 ml IV at 1 bolus Per protocol; 1000 mL bolus Route: IV; Rate: 1 bp bolus; Site: right forearm; 12:48 Follow up: Response: No adverse reaction; IV Status: Completed infusion; IV Intake: as6 1000ml 09:31 Drug: Ondansetron IVP 4 mg IVP once; over 2 minutes Route: IVP; Site: right forearm; bp 12:48 Follow up: Response: No adverse reaction as6 12:53 Drug: Hydrocodone-Acetaminophen PO (7.5 mg-325 mg) 1 tabs PO once Route: PO; as6 12:57 Follow up: Response: No adverse reaction as6 Disposition: 12:58 Co-signature as Attending Physician, Kwame Segura MD I reviewed the patient's care rt provided by the Advanced Practice Provider and agree with the diagnosis and treatment plan. Disposition Summary: 04/13/23 12:43 Discharge Ordered Notes: Location: Home sb4 Problem: new sb4 Symptoms: are unchanged sb4 Condition: Stable sb4 Diagnosis - Lower abdominal pain, unspecified sb4 Followup: sb4 - With: Ranjith Mijares MD - When: Tomorrow - Reason: Further diagnostic work-up, Recheck today's complaints, Re-evaluation by your physician Followup: sb4 - With: Maddie Lee MD - When: As needed - Reason: Further diagnostic work-up, Recheck today's complaints, Re-evaluation by your physician Followup: sb4 - With: Stef Beltrán MD - When: As needed - Reason: Further diagnostic work-up, Recheck today's complaints, Re-evaluation by your physician Discharge Instructions: - Discharge Summary Sheet sb4 - Pain Without a Known Cause sb4 - Abdominal Pain, Adult, [id number] sb4 Forms: - Medication Reconciliation Form sb4 - Thank You Letter sb4 - Antibiotic Education sb4 - Prescription Opioid Use sb4 - Patient Portal Instructions sb4 - Leadership Thank You Letter sb4 Prescriptions: - Tramadol 50 mg Oral Tablet - take 1 tablet ORAL route every 8 hours as needed; 12 tablet; Refills: 0, sb4 Product Selection Permitted Signatures: Dispatcher [employer] Alba Griffith, RN RN aa5 Ric Mejia RN RN bp Lindy Taylor Ashby, RN RN as6 Breanna Lizarraga, SCAR PAJanae sb4 Kwame Segura MD MD rt
--- NOTE | 2023-04-13 12:43 | ER ---
Nurse's Notes [facility] Name: Carmelina Gilbert Age: 72 yrs Sex: Female : 1950 Arrival Date: 04/13/2023 Time: 08:38 Bed 5 Private MD: Erlin Espinoza C Diagnosis: Lower abdominal pain, unspecified Presentation: 04/13 08:57 Chief complaint: Chief complaint: Patient states: lower abd pain x 1 week ago and worse aa5 over the last few days. 08:57 Method Of Arrival: Ambulatory aa5 08:57 Acuity: RACHELLE 3 aa5 08:57 Coronavirus screen: At this time, the client does not indicate any symptoms associated aa5 with coronavirus-19. Ebola Screen: Patient denies travel to an Ebola-affected area in the 21 days before illness onset. Initial Sepsis Screen: Does the patient meet any 2 criteria? No. Patient's initial sepsis screen is negative. Does the patient have a suspected source of infection? No. Patient's initial sepsis screen is negative. Risk Assessment: Do you want to hurt yourself or someone else? Patient reports no desire to harm self or others. Onset of symptoms was March 2023. Triage Assessment: 09:00 General: Appears in no apparent distress. Behavior is cooperative, appropriate for age, bp anxious. Pain: Complains of pain in abdomen. GI: Reports lower abdominal pain. Historical: - Allergies: 09:04 Flagyl; aa5 - PMHx: 09:04 Polio; aa5 09:05 Hypertensive disorder; Hypercholesterolemia; aa5 - PSHx: 09:04 back surgery; Cholecystectomy; aa5 - Immunization history:: Adult Immunizations unknown. - Social history:: Smoking status: Patient denies any tobacco usage or history of. Screenin:55 [facility] ED Fall Risk Assessment (Adult) History of falling in the last 3 months, bp including since admission No falls in past 3 months (0 pts). Abuse screen: Denies threats or abuse. Denies injuries from another. Nutritional screening: No deficits noted. Tuberculosis screening: No symptoms or risk factors identified. Assessment: 09:00 General: SEE TRIAGE NOTE. bp 11:00 Reassessment: Patient appears in no apparent distress at this time. Patient is alert, bp oriented x 3, equal unlabored respirations, skin warm/dry/pink. Vital Signs: 08:57 BP 145 / 87; Pulse 78; Resp 16 S; Temp 98.5(O); Pulse Ox 96% on R/A; aa5 11:00 BP 135 / 79; Pulse 75; Resp 15; Pulse Ox 95% ; bp 12:47 BP 145 / 87; Pulse 77; Resp 16 S; Pulse Ox 100% on R/A; as6 ED Course: 08:41 Patient arrived in ED. mr 08:41 Erlin Espinoza MD is Private Physician. mr 08:57 Arm band placed on. aa5 09:00 Breanna Lizarraga PA-C is PHCP. sb4 09:00 Kwame Segura MD is Attending Physician. sb4 09:07 Ric Mejia, CHELSY is Primary Nurse. bp 09:08 Triage completed. aa5 09:30 Inserted saline lock: 22 gauge in right forearm, using aseptic technique. Blood bp collected. 11:55 CT Abd/Pelvis - IV Contrast Only In Process Unspecified. EDMS 11:55 Patient has correct armband on for positive identification. bp 12:42 Ranjith Mijares MD is Referral Physician. sb4 12:43 Maddie Lee MD is Referral Physician. sb4 12:43 Stef Beltrán MD is Referral Physician. sb4 12:48 No provider procedures requiring assistance completed. as6 12:56 Provided Education on: follow up with GI. as6 12:56 IV discontinued, intact, bleeding controlled, No redness/swelling at site. Pressure as6 dressing applied. Administered Medications: 09:30 Drug: morphine IVP or IV 4 mg IVP once over 4 mins Route: IVP; Infused Over: 4 mins; bp Site: right forearm; 12:48 Follow up: Response: No adverse reaction as6 09:31 Drug: NS 0.9% IV 1000 ml IV at 1 bolus Per protocol; 1000 mL bolus Route: IV; Rate: 1 bp bolus; Site: right forearm; 12:48 Follow up: Response: No adverse reaction; IV Status: Completed infusion; IV Intake: as6 1000ml 09:31 Drug: Ondansetron IVP 4 mg IVP once; over 2 minutes Route: IVP; Site: right forearm; bp 12:48 Follow up: Response: No adverse reaction as6 12:53 Drug: Hydrocodone-Acetaminophen PO (7.5 mg-325 mg) 1 tabs PO once Route: PO; as6 12:57 Follow up: Response: No adverse reaction as6 Medication: 12:49 VIS not applicable for this client. as6 Intake: 12:48 IV: 1000ml; Total: 1000ml. as6 Outcome: 12:43 Discharge ordered by sb4 12:48 Condition: stable as6 12:56 Discharged to home ambulatory, as6 12:56 Discharge instructions given to patient, Instructed on discharge instructions, follow up and referral plans. medication usage, Demonstrated understanding of instructions, follow-up care, medications, Prescriptions given X 1, 12:57 Patient left the ED. as6 Signatures: Dispatcher [employer] EDMS Kaykay Molina, Reg Reg mr Alba Martell, RN RN aa5 Ric Mejia RN RN Shorty Jones RN RN as6 Breanna Lizarraga PA-C PA-C sb4 Corrections: (The following items were deleted from the chart) 09:08 08:57 Chief complaint: aa5 aa5 : 09:06 Acuity: RACHELLE 3 aa5 aa5 09:06 Method Of Arrival: Ambulatory aa5 aa5 : 09:06 Coronavirus screen: At this time, the client does not indicate any symptoms aa5 associated with coronavirus-19. aa5 09:06 Ebola Screen: Patient denies travel to an Ebola-affected area in the 21 days aa5 before illness onset. aa5 : 09:06 Initial Sepsis Screen: Does the patient meet any 2 criteria? No. Patient's aa5 initial sepsis screen is negative. Does the patient have a suspected source of infection? No. Patient's initial sepsis screen is negative. aa5 09:06 Risk Assessment: Do you want to hurt yourself or someone else? Patient reports no aa5 desire to harm self or others. aa5 09:06 Onset of symptoms was March 2023 aa5 aa5
[2023-04-13 15:24] VITALS: TEMP 98.5
[2023-04-13 15:43] VITALS: BP 145/87; O2SAT 100
== END ==
LOC: ER 08:38
DX: R10.30 Lower abdominal pain, unspecified (principal); I10 Essential (primary) hypertension; E78.00 Pure hypercholesterolemia, unspecified; Z88.1 Allergy status to other antibiotic agents
CPT/HCPCS: 85025; 81001; 36415; 83690; 80053; 74177; Q9967; J2405; J7030